=== PATIENT | male | born 1950 | race Caucasian/White ===

== ENCOUNTER 2019-05-21 10:03 | Emergency (ER) | payer MEDICARE ==
[2019-05-21 10:38] VITALS: BP 122/77
--- NOTE | 2019-05-21 11:33 | UC ---
Respiratory Complaint HPI - HPI Summary HPI Summary: 68 y/o male presents to the urgent care c/o pt with cough/congestion, nasal drainage, and green phlem for about two weeks. afebrile. no chest pain, no difficulty breathing. - History of Current Complaint Chief Complaint: UCRespiratory Stated Complaint: COUGH, AND CHEST CONGESTION Time Seen by Provider: 05/21/19 11:27 Hx Obtained From: Patient Onset/Duration: Gradual Onset, Lasting Weeks - 2 weeks, Worse Since - 2 days Timing: Constant Severity Initially: Mild Severity Currently: Moderate Pain Intensity: 0 Pain Scale Used: 0-10 Numeric Character: Cough: Productive, Sputum Description: - green Aggravating Factors: Recumbent Position Alleviating Factors: OTC Meds Associated Signs And Symptoms: Positive: URI, Nasal Congestion, Sinus Discomfort. Negative: Fever, Chills, Wheezing Related History: Seasonal Allergies - Risk Factors Pulmonary Embolism Risk Factors: Negative Cardiac Risk Factors: Negative Pseudomonas Risk Factors: Negative Tuberculosis Risk Factors: Negative - Allergies/Home Medications Allergies/Adverse Reactions: Allergies Allergy/AdvReac Type Severity Reaction Status Date / Time No Known Allergies Allergy Verified 05/21/19 10:38 Home Medications: Home Medications Cholecalciferol (Vitamin D3) [Vitamin D3] 1 tab PO DAILY 05/21/19 [History Confirmed 05/21/19] Dm/PE/Acetaminophen/Doxylamine [Vicks Dayquil-Nyquil Cold-Flu] 1 mis PO ONCE PRN 05/21/19 [History Confirmed 05/21/19] Itworks Supplement 1 tab PO DAILY 05/21/19 [History Confirmed 05/21/19] PMH/Surg Hx/FS Hx/Imm Hx Previously Healthy: Yes Other Endocrine History: vitamin D defficiency - Surgical History Surgical History: Yes Surgery Procedure, Year, and Place: anofistula. sinus surgery - Family History Known Family History: Positive: Hypertension - Social History Occupation: Retired Lives: With Family Alcohol Use: Daily Substance Use Type: None Smoking Status (MU): Never Smoked Tobacco Review of Systems All Other Systems Reviewed And Are Negative: Yes Constitutional: Positive: Negative Skin: Positive: Negative Eyes: Positive: Negative ENT: Positive: Sore Throat, Nasal Discharge - green, Sinus Congestion, Sinus Pain/Tenderness, Other - moderate PND Respiratory: Positive: Cough - productive w/ green phlegm Cardiovascular: Positive: Negative Gastrointestinal: Positive: Negative Genitourinary: Positive: Negative Motor: Positive: Negative Neurovascular: Positive: Negative Musculoskeletal: Positive: Negative Neurological: Positive: Negative Psychological: Positive: Negative Is Patient Immunocompromised?: No Physical Exam - Summary Physical Exam Summary: Vital Signs Reviewed: Yes General: well developed, well nourished male sitting in the examining table w/o any apparent distress Eyes: Positive: Conjunctiva Clear - PERRLA, EOMI, fundi grossly normal ENT: Positive: Normal ENT inspection, Hearing grossly normal, Pharynx normal, Nasal congestion - edematous and erythematous nasal mucosa, Nasal drainage - yellowish drainage, TMs normal. Negative: Tonsillar swelling, Tonsillar exudate Neck: Positive: Supple, Nontender, No Lymphadenopathy Respiratory: no orthopnea or dyspnea. Able to speak in full sentences, no retractions or accessory muscle use, no tripod position, stridor, or head bobbing. Positive breath sounds bilaterally. Mild posterior upper lung w/ scattered rhonchit, no wheezing no crackles or rales. Cardiovascular: Positive: RRR, No Murmur, Pulses Normal, Brisk Capillary Refill Abdomen Description: Positive: Nontender, No Organomegaly, Soft. Negative: CVA Tenderness (R), CVA Tenderness (L) Bowel Sounds: Positive: Present Musculoskeletal Exam: Normal Musculoskeletal: Positive: Strength Intact, ROM Intact, No Edema Neurological Exam: Normal Psychological Exam: Normal Skin Exam: Normal Triage Information Reviewed: Yes Vital Signs: Initial Vital Signs Temp 98.9 F 05/21/19 10:35 Pulse 79 05/21/19 10:35 Resp 18 05/21/19 10:35 BP 122/77 05/21/19 10:35 Pulse Ox 97 05/21/19 10:35 Respiratory Course/Dx - Course Course Of Treatment: Pt with Acute bronchitis on examination. Pt Rx Doxuycyline PO and Tessalon tabs as directed below to alleviate cough. Pt advised to increase fluid intake and eat well. if not improvement or worsening of symptoms to return to the urgent care or f/u with PCP for further management. pt understood and agreed with plan of care. - Differential Dx/Diagnosis Differential Diagnosis/HQI/PQRI: Asthma, Bronchitis, Influenza, Lower Resp Infection, Sinusitis, Other - pneumonia Provider Diagnosis: Acute bronchitis Discharge - Sign-Out/Discharge Documenting (check all that apply): Patient Departure - d/c home All imaging exams completed and their final reports reviewed: No Studies - Discharge Plan Condition: Stable Disposition: HOME Prescriptions: Benzonatate CAP* [Tessalon 100 MG CAP*] 100 mg PO TID PRN #21 cap PRN Reason: Cough DOXYcycline CAP(*) [DOXYcycline 100MG CAP(*)] 100 mg PO BID #20 cap Patient Education Materials: Acute Bronchitis (ED) Referrals: [facility] [place] [facility] [Outside] - 3 Days Additional Instructions: 1-Please take full course of antibiotic to avoid resistance. Please take yogurts w/ probiotics or Culturelle to protect your GI system 2-Take Tessalon PO tabs as directed and use the albuterol inhaler to alleviate cough. Increase fluid intake, rest and eat well. 3-Use the saline drops and Flonase nasal spray you have at home to clear your sinuses and alleviate symptoms 4- If symptoms do not improve or worsen or your develop SOB with fever and severe wheezing please go immediately to the ER further evaluation and treatment. 5- If not improvement of symptoms please F/u with your PCP or return here at the urgent care in 3 days for further management - Billing Disposition and Condition Condition: STABLE Disposition: Home
== END 2019-05-21 12:28 | disposition home or self-care (01) ==
LOC: UCEAST 10:03
DX: J98.01 Acute bronchospasm (principal)
CPT/HCPCS: 99202; G0463